=== PATIENT | male | born 1955 | race Two or more races ===

== ENCOUNTER → 2016-05-11 | Outpatient (CLI) | payer OTHER ==
--- NOTE | 2016-05-11 23:11 | DX ---
Lumbar spine, 6 views. Comparison: May 03, 2013. Indication: Injury on April 26, 2016 lifting heavy object. FINDINGS: Bony alignment of the lumbar spine is relatively well-maintained. Mild disc space narrowing is present at T11-T12. Mild osteoarthritic changes of the facet joints are present in the lower lumb ar spine. Minimal change compared to prior examination. Impression: mild multilevel degenerative disc disease and facet arthropathy.
== END ==
LOC: BRMIMAGING 16:47
PROVIDERS: ATTEND Physician Assistant
DX: M51.36 Other intervertebral disc degeneration, lumbar region (principal); X50.0XXA Overexertion from strenuous movement or load, initial encounter
CPT/HCPCS: 72114-PO